=== PATIENT | male | born 1980 | race Caucasian/White ===

== ENCOUNTER 2017-05-22 08:19 | Emergency (ER) | payer OTHER ==
[2017-05-22 08:28] VITALS: BP 150/85; PULSE 72; RESP 18; TEMP 97.5
[2017-05-22] MEDS ORDERED: PROPARACAINE 0.5% OPHTH DROPS 15 ML BTL BOTH EYES STA (08:29)
[2017-05-22] MEDS ORDERED: ERYTHROMYCIN 5 MG/GM OPHTH OINT 3.5 GM TUBE BOTH EYES STA (08:29)
[2017-05-22] MEDS ORDERED: PROPARACAINE 0.5% OPHTH DROPS 15 ML BTL ONE (08:31)
--- NOTE | 2017-05-22 08:47 | ED ---
Eye Problem HPI - General Chief complaint: Eye Problems Stated complaint: FB IN LEFT EYE Time Seen by Provider: 05/22/17 08:29 Source: patient Mode of arrival: ambulatory Limitations: no limitations - History of Present Illness Initial comments: This is a 36-year-old male presents emergency Department chief complaint of pain and irritation over his left eye. Patient reports that yesterday he was working with insulation, and a piece came down and gravel also scratched his eye. Patient reports this happened last night. He states that throughout the day it became increasingly uncomfortable. He reports that he had a hard time sleeping due to pain. Patient denies any major change in vision however his eye seems to be sensitive to bright light. Patient states that he does not wear contacts. He usually does wear safety glasses. Patient states that he has noticed increased purulent drainage from the eyes well. Patient denies any fever or chills, pain with extra ocular eye movements or any other symptoms. Patient denies any recent fever, chills, shortness of breath, chest pain, back pain, abdominal pain, nausea vomiting, numbness or tingling, dysuria or hematuria, constipation or diarrhea, headaches or visual changes, or any other current symptoms - Related Data Previous Rx's Medication Instructions Recorded Albuterol Inhaler [Ventolin Hfa 1 puff INHALATION RT-QID PRN #1 04/01/15 Inhaler] inhaler Cyclobenzaprine [Flexeril] 10 mg PO TID #20 tablet 03/15/16 HYDROcodone/APAP 5-325MG [Mcgregor 5] 1 each PO Q4HR PRN #20 tab 03/15/16 Naproxen [Naprosyn] 500 mg PO Q12HR #24 tab 03/15/16 Allergies Allergy/AdvReac Type Severity Reaction Status Date / Time No Known Allergies Allergy Verified 05/22/17 08:28 Review of Systems ROS Statement: Those systems with pertinent positive or pertinent negative responses have been documented in the HPI. ROS Other: All systems not noted in ROS Statement are negative. Past Medical History Past Medical History: No Reported History History of Any Multi-Drug Resistant Organisms: None Reported Past Surgical History: Orthopedic Surgery Additional Past Surgical History / Comment(s): titanium plate in neck fusion between c4-c5 Past Anesthesia/Blood Transfusion Reactions: No Reported Reaction Past Psychological History: ADD/ADHD, Anxiety, Bipolar, Depression Smoking Status: Current every day smoker Past Alcohol Use History: None Reported Past Drug Use History: None Reported General Exam - General Exam Comments Initial Comments: 36-year-old male. No acute distress. Limitations: no limitations General appearance: alert, in no apparent distress Head exam: Present: atraumatic, normocephalic, normal inspection Eye exam: Present: normal appearance, PERRL, EOMI, conjunctival injection (Left eye conjunctival injection. Evidence of a corneal abrasion at the 12 o'clock position. Eyelid was lifted and there appeared to be a small piece of insulation seem to be left within the eye. This was removed.), other (Saez has left eye conjunctival injection.). Absent: scleral icterus, periorbital swelling ENT exam: Present: normal exam, mucous membranes moist Neck exam: Present: normal inspection. Absent: tenderness, meningismus, lymphadenopathy Respiratory exam: Present: normal lung sounds bilaterally. Absent: respiratory distress, wheezes, rales, rhonchi, stridor Cardiovascular Exam: Present: regular rate, normal rhythm, normal heart sounds. Absent: systolic murmur, diastolic murmur, rubs, gallop, clicks GI/Abdominal exam: Present: soft, normal bowel sounds. Absent: distended, tenderness, guarding, rebound, rigid Extremities exam: Present: normal inspection, full ROM, normal capillary refill. Absent: tenderness, pedal edema, joint swelling, calf tenderness Back exam: Present: normal inspection Neurological exam: Present: alert, oriented X3, CN II-XII intact Psychiatric exam: Present: normal affect, normal mood Course Vital Signs 05/22/17 08:26 Temperature 97.5 F L Pulse Rate 72 Respiratory 18 Rate Blood Pressure 150/85 O2 Sat by Pulse 100 Oximetry Medical Decision Making - Medical Decision Making 36-year-old male with left eye irritation after where he has house. Patient reports a gradual and insulation got in his eye. Patient has evidence of corneal abrasion at the 12 o'clock position. There is also piece of what appeared to be some insulation still left in it. This was removed. Patient was started on erythromycin ointment. Discussed close follow-up with tool shaper set up operator if symptoms continue to persist or worsen within the next 4 hours. Patient agrees to treatment plan will comply. Return parameters were discussed. Disposition Clinical Impression: Corneal abrasion, left, Foreign body in eyeball, left Disposition: HOME SELF-CARE Condition: Good Instructions: Corneal Abrasion (ED) Additional Instructions: Patient advised to follow-up with tool shaper set up operator if symptoms continue to persist. Return to the emergency department if any alarming signs or symptoms occur. Patient is apply the eye ointment every 4 hours. Referrals: Chad Rider MD [Primary Care Provider] - 1-2 days Twyla Yang MD [STAFF PHYSICIAN] - 1-2 days Time of Disposition: 08:46
== END 2017-05-22 08:55 | disposition home or self-care (01) ==
LOC: EC 08:19
DX: T15.82XA Foreign body in other and multiple parts of external eye, left eye, initial encounter (principal); S05.02XA Injury of conjunctiva and corneal abrasion without foreign body, left eye, initial encounter; F17.200 Nicotine dependence, unspecified, uncomplicated; X58.XXXA Exposure to other specified factors, initial encounter
CPT/HCPCS: 99283

== ENCOUNTER 2018-01-22 22:16 | Emergency (ER) | payer BC ==
[2018-01-22 22:25] VITALS: BP 147/93; PULSE 86; RESP 16; TEMP 98.6
[2018-01-23] MEDS ORDERED: ORPHENADRINE 30 MG/ML 2 ML VIAL IM STA (00:25)
[2018-01-23] MEDS ORDERED: KETOROLAC 30 MG/ML 1 ML VIAL IM STA (00:25)
[2018-01-23] MEDS ORDERED: methylPREDNISolone SOD SUCCI 125 MG/2 ML VIAL IM ONE (00:25)
--- NOTE | 2018-01-23 00:28 | ED ---
Neck Injury/Pain HPI - General Chief Complaint: Neck Pain/Injury Stated Complaint: neck pain Time Seen by Provider: 01/23/18 00:10 Mode of arrival: ambulatory Limitations: no limitations - History of Present Illness Initial Comments: 37-year-old male patient presents the emergency department today for complaints of neck pain with radiation down the right arm. Patient states that this started getting worse time approximately a week ago. Patient states that he does have a history of chronic neck pain and issues. States he has had surgery with a titanium plate placement in the past. Patient states that the pain has been worsening recently and he is unable to perform his job duties as usual. Patient states that the pain starts in the right shoulder and radiates down the right arm. Patient denies any numbness or tingling to the arm. States that the pain is similar to when he had neck problems in the past. Patient states he has been taking Tylenol and Motrin for pain relief which is not helping. He denies any fever, chills, or arm swelling. He denies any recent trauma to the neck or arm. Patient denies any recent rash, shortness breath, chest pain, abdominal pain, nausea, vomiting, diarrhea, constipation, back pain, dizziness, weakness, hematuria, dysuria, urinary urgency, urinary frequency, headache, visual changes, or any other complaints. - Related Data Previous Rx's Medication Instructions Recorded Cyclobenzaprine [Flexeril] 10 mg PO TID #15 tab 01/23/18 Ibuprofen 800 mg PO TID PRN #30 tablet 01/23/18 predniSONE 50 mg PO DAILY #5 tablet 01/23/18 Allergies Allergy/AdvReac Type Severity Reaction Status Date / Time No Known Allergies Allergy Verified 01/22/18 22:25 Review of Systems ROS Statement: Those systems with pertinent positive or pertinent negative responses have been documented in the HPI. ROS Other: All systems not noted in ROS Statement are negative. Past Medical History Past Medical History: No Reported History History of Any Multi-Drug Resistant Organisms: None Reported Past Surgical History: Orthopedic Surgery Additional Past Surgical History / Comment(s): titanium plate in neck fusion between c4-c5 Past Anesthesia/Blood Transfusion Reactions: No Reported Reaction Past Psychological History: ADD/ADHD, Anxiety, Bipolar, Depression Smoking Status: Current every day smoker Past Alcohol Use History: None Reported Past Drug Use History: None Reported General Exam Limitations: no limitations General appearance: alert, in no apparent distress, other (This is a well- developed, well-nourished adult male patient in no acute distress. Vital signs upon presentation are temperature 98.6F, pulse 86, respirations 16, blood pressure 147/93, pulse ox 98% on room air.) Eye exam: Present: normal appearance, PERRL, EOMI. Absent: scleral icterus, conjunctival injection, periorbital swelling ENT exam: Present: normal exam, normal oropharynx, mucous membranes moist Neck exam: Present: normal inspection. Absent: tenderness, meningismus, full ROM (Limited range of motion due to increased pain with movement), lymphadenopathy Respiratory exam: Present: normal lung sounds bilaterally. Absent: respiratory distress, wheezes, rales, rhonchi, stridor Cardiovascular Exam: Present: regular rate, normal rhythm, normal heart sounds. Absent: systolic murmur, diastolic murmur, rubs, gallop, clicks GI/Abdominal exam: Present: soft, normal bowel sounds. Absent: distended, tenderness, guarding, rebound, rigid Extremities exam: Present: normal inspection, full ROM, normal capillary refill , other (Right arm skin is pink, warm, and dry. Cap refills less than 3 seconds. Radial pulses 2+ and equal bilaterally. There is some crepitus with range of motion of the right shoulder.). Absent: tenderness, pedal edema, joint swelling, calf tenderness Neurological exam: Present: alert, oriented X3, CN II-XII intact Psychiatric exam: Present: normal affect, normal mood Skin exam: Present: warm, dry, intact, normal color. Absent: rash Course Vital Signs 01/22/18 22:23 Temperature 98.6 F Pulse Rate 86 Respiratory 16 Rate Blood Pressure 147/93 O2 Sat by Pulse 98 Oximetry Medical Decision Making - Medical Decision Making 37-year-old male patient presented to the emergency department today for evaluation of neck and right arm pain. Physical examination did reveal good neurovascular status. Patient did have crepitus with movement of the right shoulder. Distal pulses are intact. With patient's history of chronic neck pain and issues and his description of the symptoms I do believe his symptoms are related to cervical radiculopathy. We will give anti-inflammatory pain medication, muscle relaxer, and steroid. He is instructed to follow-up with Dr. Swenson for further evaluation. He is instructed to return here immediately for any new, worsening, or concerning symptoms. He verbalizes understanding and agrees with this plan. Disposition Clinical Impression: Cervical radiculopathy Disposition: HOME SELF-CARE Condition: Good Instructions: Cervical Radiculopathy (ED) Additional Instructions: Apply warm moist heat to the neck and shoulder. Take medications as directed. Follow-up with marketing analytics specialist as soon as possible. Return here immediately for any new, worsening, or concerning symptoms. Prescriptions: Cyclobenzaprine [Flexeril] 10 mg PO TID #15 tab Ibuprofen 800 mg PO TID PRN #30 tablet PRN Reason: Pain predniSONE 50 mg PO DAILY #5 tablet Is patient prescribed a controlled substance at d/c from ED?: No Referrals: James Chavez MD [Primary Care Provider] - 1-2 days Rosa Swenson DO [Doctor of Osteopathic Medicine] - 1-2 days Time of Disposition: 00:27
== END 2018-01-23 00:36 | disposition home or self-care (01) ==
LOC: EC 22:16
DX: M54.12 Radiculopathy, cervical region (principal); F17.200 Nicotine dependence, unspecified, uncomplicated
CPT/HCPCS: 99283; 96372 ×3; J2360; J2930; J1885

== ENCOUNTER 2018-01-29 21:53 | Emergency (ER) | payer BC ==
[2018-01-29 22:31] VITALS: BP 141/90; PULSE 106; RESP 18; TEMP 97
--- NOTE | 2018-01-29 23:19 | ED ---
General Adult HPI - General Chief complaint: Neck Pain/Injury Stated complaint: Neck/shoulder pain Time Seen by Provider: 01/29/18 22:25 Source: patient, RN notes reviewed Mode of arrival: ambulatory Limitations: no limitations - History of Present Illness Initial comments: 37-year-old male presents to the emergency department for a chief complaint of chronic neck pain. Pain has been worse for the past 2 weeks. Patient denies any injuries. Patient had neck surgery about 8 years ago and was told he would need another surgery. Patient was seen here one week ago and was given steroids , Flexeril, and Motrin. The Flexeril helped but the Motrin is not. Patient has an appointment with his surgeon in 2 weeks. He has an appointment with his primary care provider in 4 weeks. Patient states he contacted the surgeon because he was having pain and was told to go to the emergency department for pain management. 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 Patient states the pain is on the bilateral sides of his neck and is causing some pain in his right arm. Patient has no other complaints at this time including visual changes, headache, shortness of breath, chest pain , abdominal pain, nausea or vomiting, headache, or visual changes. - Related Data Previous Rx's Medication Instructions Recorded Cyclobenzaprine [Flexeril] 10 mg PO TID #15 tab 01/23/18 Ibuprofen 800 mg PO TID PRN #30 tablet 01/23/18 predniSONE 50 mg PO DAILY #5 tablet 01/23/18 Acetaminophen-Codeine 300-30mg 1 tab PO Q6HR PRN #10 tablet 01/29/18 [Tylenol #3] Cyclobenzaprine [Flexeril] 5 mg PO TID #9 tablet 01/29/18 Allergies Allergy/AdvReac Type Severity Reaction Status Date / Time No Known Allergies Allergy Verified 01/29/18 22:28 Review of Systems ROS Statement: Those systems with pertinent positive or pertinent negative responses have been documented in the HPI. ROS Other: All systems not noted in ROS Statement are negative. Past Medical History Past Medical History: No Reported History History of Any Multi-Drug Resistant Organisms: None Reported Past Surgical History: Orthopedic Surgery Additional Past Surgical History / Comment(s): titanium plate in neck fusion between c4-c5 Past Anesthesia/Blood Transfusion Reactions: No Reported Reaction Past Psychological History: ADD/ADHD, Anxiety, Bipolar, Depression Smoking Status: Current every day smoker Past Alcohol Use History: None Reported Past Drug Use History: None Reported General Exam Limitations: no limitations General appearance: alert, in no apparent distress Head exam: Present: atraumatic, normocephalic, normal inspection Eye exam: Present: normal appearance, PERRL, EOMI. Absent: scleral icterus, conjunctival injection, nystagmus, periorbital swelling ENT exam: Present: normal exam, mucous membranes moist, TM's normal bilaterally Neck exam: Present: tenderness (bilateral neck tenderness. No tenderness of the cervical spine.). Absent: meningismus, full ROM (patient has decreased rotation to the right. Full rotation to the left. Limited flexion and extension. ), lymphadenopathy, thyromegaly Respiratory exam: Present: normal lung sounds bilaterally. Absent: respiratory distress, wheezes, rales, rhonchi, stridor Cardiovascular Exam: Present: regular rate, normal rhythm, normal heart sounds. Absent: systolic murmur, diastolic murmur, rubs, gallop, clicks Extremities exam: Present: full ROM (Full range of motion of upper extremities bilaterally.), other (radial pulse 2+ in upper extremities bilaterally. Capillary refill less than 2 seconds. Sensation intact in upper extremities bilaterally.). Absent: tenderness Back exam: Present: normal inspection, full ROM. Absent: tenderness Course Vital Signs 01/29/18 22:28 Temperature 97 F L Pulse Rate 106 H Respiratory 18 Rate Blood Pressure 141/90 O2 Sat by Pulse 97 Oximetry Medical Decision Making - Medical Decision Making 37-year-old male presents to the emergency department for a chief complaint of chronic neck pain. Pain has worsened in the past 2 weeks. Patient has a history of neck surgery. No acute injuries. Patient denies IV drug use. Patient has tried Motrin steroids and Flexeril and the pain is still severe. Patient is having difficulty working due to the pain. On exam patient has limited range of motion of the neck. Upper extremities neurovascularly intact. No focal neuro deficits. X-ray of the C-spine was not done as this is a chronic complaint with no history of injury. Patient was given Tylenol 3 for 3 days. His maps score only showed 1 other narcotic prescription in 2016. He was also given Flexeril. He will attend his appointment with the surgeon as scheduled. He will return to the emergency department if he has any worsening symptoms. Disposition Clinical Impression: Chronic neck pain Disposition: HOME SELF-CARE Condition: Good Instructions: Neck Pain (ED) Additional Instructions: Please take Motrin for pain relief. If pain is severe take Tylenol 3. He may also take Flexeril. Please do not take Tylenol 3 or Flexeril when driving or operating machinery. Please follow-up with surgeon at your scheduled appointment. Return to the emergency department if symptoms worsen. Prescriptions: Acetaminophen-Codeine 300-30mg [Tylenol #3] 1 tab PO Q6HR PRN #10 tablet PRN Reason: Pain Cyclobenzaprine [Flexeril] 5 mg PO TID #9 tablet Is patient prescribed a controlled substance at d/c from ED?: No Referrals: James Chavez MD [Primary Care Provider] - 1-2 days Time of Disposition: 23:17
== END 2018-01-29 23:23 | disposition home or self-care (01) ==
LOC: EC 21:53
DX: G89.29 Other chronic pain (principal); M54.2 Cervicalgia; F17.200 Nicotine dependence, unspecified, uncomplicated; Z98.1 Arthrodesis status
CPT/HCPCS: 99283

== ENCOUNTER 2020-02-10 02:01 | Emergency (ER) | payer BC, OTHER ==
[2020-02-10 02:10] VITALS: BP 137/86; PULSE 100; RESP 18; TEMP 98.1
[2020-02-10] MEDS ORDERED: IBUPROFEN 400 MG TAB PO STA (02:43)
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
--- NOTE | 2020-02-10 03:25 | XR ---
EXAMINATION TYPE: XR hand complete RT DATE OF EXAM: 02/10/2020 COMPARISON: NONE HISTORY: Pain TECHNIQUE: 3 views FINDINGS: The metacarpals appear intact. There is a triangular-shaped 4 mm bony density at the anteri or aspect of the base of the third proximal phalanx. This could be at chip fracture.. Joint spaces ar e normal. IMPRESSION: Possible chip fracture of the base of the proximal phalanx of the middle finger.
== END 2020-02-10 04:23 | disposition home or self-care (01) ==
LOC: EC 02:01
DX: S62.612A Displaced fracture of proximal phalanx of right middle finger, initial encounter for closed fracture (principal); F17.200 Nicotine dependence, unspecified, uncomplicated; Z98.1 Arthrodesis status; X58.XXXA Exposure to other specified factors, initial encounter
CPT/HCPCS: 99283

== ENCOUNTER 2021-12-19 11:27 | Day surgery (SDC) | payer OTHER ==
[2021-12-18 10:58] VITALS: BMI 21.4
[2021-12-19] MEDS ORDERED: LACTATED RINGERS 1,000 ML IV ONE (11:50)
[2021-12-19 12:04] VITALS: TEMP 97
[2021-12-19] MEDS ORDERED: MIDAZOLAM 2 MG/2 ML VIAL ONE (12:10)
[2021-12-19] MEDS ORDERED: IOPAMIDOL M200 10 ML VIAL ONE (12:10)
[2021-12-19] MEDS ORDERED: fentaNYL (PF) 50 MCG/ML 2 ML AMP ONE (12:10)
[2021-12-19] MEDS ORDERED: methylPREDNISolone ACETATE 40 MG/ML 1 ML VIAL ONE (12:10)
--- NOTE | 2021-12-19 12:23 | P.PCN ---
Date of Procedure: 12/19/21 Procedure(s) Performed: PREOPERATIVE DIAGNOSIS: 1- Lumbar Degenerative Disc Diseases 2-Lumbar spondylosis with Facet arthropathy without myelopathy. 3-lumbar foraminal stenosis. POSTOPERATIVE DIAGNOSIS: Same as preop diagnosis. PROCEDURE 1. Lumbar epidural steroid injection under fluoroscopic guidance at the L5-S1 level. (Fluoroscopy imaging was available in radiology department) 2. Lumbar epidurogram. ANESTHESIA: Local with 1% lidocaine 3 ml and , moderate sedation with intravenous Versed 2 mg ,and fentanyle 100 Mcg EBL: Minimal PROCEDURE INDICATION: The patient with low back pain and radiculitis symptoms unresponsive to conservative treatment. Fluoroscopy was used to optimize visualization of the needle placement and to maximize safety. PROCEDURE DESCRIPTION / TECHNIQUE: The patient was seen and identified in the preoperative area. Risks, benefits, complications including but not limited to infections ,bleeding ,allergic reaction to the medications ,nerve damage and not complete pain releife , and alternatives were discussed with the patient. The patient agreed to proceed with the procedure and signed the consent. IV was started, and vital signs were stable. Patient was taken to the OR and time out was completed. The patient was placed in the prone position on procedure table and a pillow was placed under the abdomen to reduce lumbar lordosis. The lumbosacral area was prepped and draped in the usual sterile fashion.ere closely monitored during the procedure. Conscious sedation was used during the procedure to decrease patients anxiety. Vital signs was monitered during the entire procedure. Using anterior-posterior fluoroscopy, the L5-S1 interlaminar space was identified and the skin over this site was marked and then infiltrated with 1% lidocaine subcutaneously. Subsequently, a 20-gauge Tuohy epidural needle was inserted and advanced toward the epidural space using the ``Loss of resistance technique and guided by AP and lateral fluoroscopy. The correct needle position in the epidural space was verified with the injection of 2 mL of the water soluble contrast dye Isovue 200 contrast and observing an excellent epidurogram with the epidural spread of the dye, after negative aspiration for blood and CSF and in the absence of paresthesias. Again after negative aspiration, a 6 ml mixture containing 80 mg of Depo-medrol , and 2 ml of preservative free Normal Saline, and 2 ml of preservative free lidocaine 1% solution was injected and a washout of epidurogram was seen. Needle was withdrawn intact, skin was cleansed, and bandages were applied. COMPLICATIONS: None DISPOSITION / PLANS: The patient was placed in a supine position and transferred to the recovery area in a stable condition for observation. There was no evidence of lower extremity motor or sensory deficit after the procedure. Patient was discharged from the recovery room after meeting discharge criteria. Home discharge instructions were given to the patient by the staff. The patient was reexamined prior to discharge. The patient will schedule a follow up in the clinic in 2-4 weeks.
[2021-12-19] MEDS ORDERED: IV FLUID CONTINUATION 700 ML IV ONE ×2 (12:25)
--- NOTE | 2021-12-19 12:29 | FL ---
Fluoroscopy INDICATION: Pain FINDINGS: Fluoroscopy time: 2 seconds. Images obtained: 1. IMPRESSIONS: 1. Documentation of fluoroscopy.
[2021-12-19 13:00] VITALS: BP 120/77; PULSE 92; RESP 18
== END 2021-12-19 13:00 | disposition home or self-care (01) ==
LOC: ORPAIN 11:27
PROVIDERS: ATTEND Specialist
DX: M51.36 Other intervertebral disc degeneration, lumbar region (principal); M48.061 Spinal stenosis, lumbar region without neurogenic claudication; M47.816 Spondylosis without myelopathy or radiculopathy, lumbar region
CPT/HCPCS: 62323; J2250; J1030; J3010; Q9966

== ENCOUNTER 2022-01-25 10:06 | Day surgery (SDC) | payer OTHER ==
[2022-01-24 10:56] VITALS: BMI 20.7
[~2022-01-25 10:06] MED LIST: LACTATED RINGERS 1,000 ML IV SCH; LIDOCAINE 1% (10MG/ML) FOR IV START INTRADERMA PRN
[2022-01-25 10:34] VITALS: TEMP 97.7
[2022-01-25] MEDS ORDERED: fentaNYL (PF) 50 MCG/ML 2 ML AMP ONE (10:59)
[2022-01-25] MEDS ORDERED: methylPREDNISolone ACETATE 40 MG/ML 1 ML VIAL ONE (10:59)
[2022-01-25] MEDS ORDERED: IOPAMIDOL M200 10 ML VIAL ONE (10:59)
[2022-01-25] MEDS ORDERED: MIDAZOLAM 2 MG/2 ML VIAL ONE (10:59)
--- NOTE | 2022-01-25 11:11 | P.PCN ---
Date of Procedure: 01/25/22 Procedure(s) Performed: PREOPERATIVE DIAGNOSIS: 1- Lumbar Degenerative Disc Diseases 2-Lumbar spondylosis with Facet arthropathy without myelopathy. 3-lumbar foraminal stenosis. POSTOPERATIVE DIAGNOSIS: Same as preop diagnosis. PROCEDURE 1. Lumbar epidural steroid injection under fluoroscopic guidance at the L5-S1 level. (Fluoroscopy imaging was available in radiology department) 2. Lumbar epidurogram. ANESTHESIA: Local with 1% lidocaine 3 ml and , moderate sedation with in travenous Versed 2 mg ,and fentanyle 100 Mcg EBL: Minimal PROCEDURE INDICATION: The patient with low back pain and radiculitis symptoms unresponsive to conservative treatment. Fluoroscopy was used to optimize visualization of the needle placement and to maximize safety. PROCEDURE DESCRIPTION / TECHNIQUE: The patient was seen and identified in the preoperative area. Risks, benefits, complications including but not limited to infections ,bleeding ,allergic reaction to the medications ,nerve damage and not complete pain releife , and alternatives were discussed with the patient. The patient agreed to proceed with the procedure and signed the consent. IV was started, and vital signs were stable. Patient was taken to the OR and time out was completed. The patient was placed in the prone position on procedure table and a pillow was placed under the abdomen to reduce lumbar lordosis. The lumbosacral area was prepped and draped in the usual sterile fashion.ere closely monitored during the procedure. Conscious sedation was used during the procedure to decrease patients anxiety. Vital signs was monitered during the entire procedure. Using anterior-posterior fluoroscopy, the L5-S1 interlaminar space was identified and the skin over this site was marked and then infiltrated with 1% lidocaine subcutaneously. Subsequently, a 20-gauge Tuohy epidural needle was inserted and advanced toward the epidural space using the ``Loss of resistance technique and guided by AP and lateral fluoroscopy. The correct needle position in the epidural space was verified with the injection of 2 mL of the water soluble contrast dye Isovue 200 contrast and observing an excellent epidurogram with the epidural spread of the dye, after negative aspiration for blood and CSF and in the absence of paresthesias. Again after negative aspiration, a 6 ml mixture containing 80 mg of Depo-medrol , and 2 ml of preservative free Normal Saline, and 2 ml of preservative free lidocaine 1% solution was injected and a washout of epidurogram was seen. Needle was withdrawn intact, skin was cleansed, and bandages were applied. COMPLICATIONS: None DISPOSITION / PLANS: The patient was placed in a supine position and transferred to the recovery area in a stable condition for observation. There was no evidence of lower extremity motor or sensory deficit after the procedure. Patient was discharged from the recovery room after meeting discharge criteria. Home discharge instructions were given to the patient by the staff. The patient was reexamined prior to discharge. The patient will schedule a follow up with Dr Swenson..
[2022-01-25] MEDS ORDERED: IV FLUID CONTINUATION 1,000 ML IV ONE (11:15)
[2022-01-25 11:39] VITALS: BP 134/79; PULSE 74; RESP 16
--- NOTE | 2022-01-25 15:15 | FL ---
EXAMINATION TYPE: FL guided pain mgmt statistic DATE OF EXAM: 01/25/2022 CLINICAL HISTORY: Low back pain. TECHNIQUE: Fluoroscopy. COMPARISON: None. FINDINGS: Fluoroscopic guidance was provided during pain relief procedure performed by Dr. Scott . A total of 2 seconds of fluoroscopic time was utilized during the procedure and 1 spot images are acquired. Single image acquired shows needle localization at L5 level with contrast injection. IMPRESSION: As Above.
== END 2022-01-25 11:42 | disposition home or self-care (01) ==
LOC: ORPAIN 10:06
PROVIDERS: ATTEND Specialist
DX: M47.816 Spondylosis without myelopathy or radiculopathy, lumbar region (principal); M48.061 Spinal stenosis, lumbar region without neurogenic claudication; M51.36 Other intervertebral disc degeneration, lumbar region
CPT/HCPCS: 62323; J2250; J1030; J3010; Q9966

== ENCOUNTER → 2022-01-31 | Outpatient (CLI) | payer OTHER ==
--- NOTE | 2022-01-31 10:54 | XR ---
EXAMINATION TYPE: XR chest 2V DATE OF EXAM: 01/31/2022 COMPARISON: Prior chest x-ray January 15, 2015 HISTORY: Presurgical study. TECHNIQUE: Frontal and lateral views of the chest are obtained. FINDINGS: There is no suspicious focal air space opacity, pleural effusion, or pneumothorax seen. T he cardiac silhouette size remains within normal limits. Surgical change to the lower cervical spine is redemonstrated only partially imaged on this study. IMPRESSION: No acute cardiopulmonary process. No significant change from prior.
[2022-01-31 11:23] LABS: Partial Thromboplastin Time 23.3 sec (22.0-30.0); Prothrombin Time 10.5 sec (9.0-12.0)
[2022-01-31 14:48] LABS: Basophils # (A) 0.03 X 10*3/uL (0.00-0.10); Basophils % (A) 0.3 %; Eosinophils # (A) 0.13 X 10*3/uL (0.04-0.35); Eosinophils % (A) 1.4 %; HCT 47.2 % (39.6-50.0); HGB 15.6 g/dL (13.0-17.0); Immature Grans, Automated 0.5 %; MCHC 33.1 g/dL (32.0-37.0); MCV 93.8 fL (80.0-97.0); Mean Platelet Volume 10.2 fL (9.5-12.2); Monocytes # (A) 0.68 X 10*3/uL (0.20-1.00); Monocytes % (A) 7.2 %; NRBC Per 100 WBC 0 /100 WBCS (0.0-0.0); Neutrophils # (A) 5.41 X 10*3/uL (1.80-7.70); Neutrophils % (A) 57.6 %; Platelet Count 351 X 10*3/uL (140-440); RBC 5.03 X 10*6/uL (4.40-5.60); RDW 12.6 % (11.5-14.5)
[2022-01-31 15:27] LABS: BUN/Creat Ratio 17.12 Ratio (12.00-20.00); Blood Urea Nitrogen 13.3 mg/dL (9.0-27.0); Calcium 9.5 mg/dL (8.7-10.3); Carbon Dioxide 26.8 mmol/L (20.0-27.5); Non-African American GFR(CKD) 113.9 (60.0-200.0); Potassium 4.4 mmol/L (3.5-5.5)
[2022-01-31 19:30] LABS: Appearance,Urine Turbid (Clear); Bacteria,Urine None Seen /HPF (None Seen); Bilirubin,Urine Negative (Negative); Blood,Urine Negative (Negative); Calcium Oxalate Crystals,Urine Present /LPF (None Seen); Color,Urine Orange (Yellow); Ketones,Urine Trace mg/dL (Negative); Nitrite,Urine Negative (Negative); PH, Urine 5.5 (5.0-8.0); Specific Gravity,Urine 1.025 (1.001-1.030); Urobilinogen,Urine 0.2 (0.2,1.0)
== END | disposition home or self-care (01) ==
LOC: LABPAT 09:48
PROVIDERS: ATTEND Orthopaedic Surgery Orthopaedic Surgery of the Spine
DX: Z01.812 Encounter for preprocedural laboratory examination (principal); K42.9 Umbilical hernia without obstruction or gangrene
CPT/HCPCS: 71046; 80048; 81001; 85025; 85610; 85730; 93005

== ENCOUNTER 2022-02-07 12:39 | Day surgery (SDC) | payer OTHER ==
[2022-02-05 10:50] VITALS: BMI 21.1
[~2022-02-07 12:39] MED LIST changes: +ONDANSETRON 4 MG/2 ML VIAL IVP ONE; +ceFAZolin 1,000 MG in SODIUM CHLORIDE 0.9% IRRIGATIO 1,000 ML IRRIGATION PRN
[2022-02-07] MEDS ORDERED: HYDROmorphone (PF) 1 MG/ML ONE (14:28)
[2022-02-07] MEDS ORDERED: KETAMINE 10 MG/ML 20 ML VIAL ONE (14:28)
[2022-02-07] MEDS ORDERED: NEOSTIGMINE 1 MG/ML 10 ML VIAL ONE (14:28)
[2022-02-07] MEDS ORDERED: PROPOFOL 10 MG/ML 20 ML VIAL IV ONE (14:28)
[2022-02-07] MEDS ORDERED: ROCURONIUM 10 MG/ML (5 ML VIAL) IV ONE (14:28)
[2022-02-07] MEDS ORDERED: fentaNYL (PF) 50 MCG/ML 2 ML AMP ONE (14:28)
[2022-02-07] MEDS ORDERED: MIDAZOLAM 2 MG/2 ML VIAL ONE (14:28)
[2022-02-07] MEDS ORDERED: LIDOCAINE 2% INJ 20 MG/ML (2 ML VIAL) ONE (14:28)
[2022-02-07] MEDS ORDERED: GLYCOPYRROLATE 0.2 MG/ML 2 ML VIAL ONE (14:28)
[2022-02-07] MEDS ORDERED: SUCCINYLCHOLINE CHLORIDE 100 MG/5 ML SYR IV ONE (14:28)
[2022-02-07] MEDS ORDERED: GELATIN SPONGE,ABSORB (LARGE) 1 EACH SPONGE TOPICAL ONE (14:32)
[2022-02-07] MEDS ORDERED: THROMBIN (BOVINE) 5,000 UNIT VIAL TOPICAL ONE (14:32)
[2022-02-07] MEDS ORDERED: LIDOCAINE 0.5%-EPI 1:200,000 50 ML VIAL SQ ONE (14:32)
[2022-02-07] MEDS ORDERED: methylPREDNISolone ACETATE 40 MG/ML 1 ML VIAL MISCELLANE ONE (14:32)
--- NOTE | 2022-02-07 15:23 | FL ---
EXAMINATION TYPE: FL guidance operating room, XR lumbar spine 1V DATE OF EXAM: 02/07/2022 CLINICAL HISTORY: Low back pain. TECHNIQUE: Fluoroscopy. Intraoperative one view lumbar spine. COMPARISON: None. FINDINGS: Fluoroscopic guidance was provided during lumbar laminectomy and discectomy procedure perf ormed by Dr. Swenson. A total of 1 seconds of fluoroscopic time was utilized during the procedure and 1 spot images was acquired. Single intraoperative image obtained shows suboptimal penetration with metallic pointer at suspected L5 level for surgical planning. IMPRESSION: As Above.
[2022-02-07] MEDS ORDERED: HYDROmorphone 1 MG/ML 1 ML SYRINGE IVP PRN (15:58)
[2022-02-07] MEDS ORDERED: HYDROcodone/APAP 10-325MG 1 EACH TAB PO PRN (15:58)
[2022-02-07] MEDS ORDERED: BENZOCAINE/MENTHOL LOZENG 1 EACH LOZENGE MUCOUS MEM PRN (15:58)
[2022-02-07] MEDS ORDERED: KETOROLAC 15 MG/ML 1 ML VIAL IVP PRN (15:59)
[2022-02-07] MEDS ORDERED: ONDANSETRON 4 MG/2 ML VIAL IVP PRN (15:59)
[2022-02-07] MEDS ORDERED: CYCLOBENZAPRINE 10 MG TAB PO PRN (15:59)
[2022-02-07] MEDS ORDERED: HYDROcodone/APAP 7.5-325MG 1 EACH TAB PO PRN (16:00)
[2022-02-07] MEDS ORDERED: GABAPENTIN 300 MG CAP PO SCH (16:00)
[2022-02-07] MEDS ORDERED: SODIUM CHLORIDE 0.9% 1,000 ML IV SCH (16:00)
[2022-02-07] MEDS ORDERED: LACTATED RINGERS 1,000 ML IV ONE (16:08)
--- NOTE | 2022-02-07 16:08 | P.OP ---
Date of Procedure: 02/07/22 Preoperative Diagnosis: Herniated nucleus pulposis L4 5 L5-S1, right lower extremity radiculopathy, right lower extremity weakness Postoperative Diagnosis: Same Anesthesia: GETA Pathology: none sent Condition: stable Disposition: PACU Description of Procedure: BRIEF OPERATIVE NOTE Preoperative Diagnosis:Herniated nucleus pulposis L4 5 L5-S1, right lower extremity radiculopathy, right lower extremity weakness Postoperative Diagnosis:Herniated nucleus pulposis L4 5 L5-S1, right lower extremity radiculopathy, right lower extremity weakness Procedure: Laminectomy and decompression L4 5 L5-S1 Discectomy for decompression L4 5 L5-S1 Use of fluoroscopic guidance Surgeon: Dr. Swenson Fish Hatchery Inspector: Parish Frank is present throughout the entire the case persistence during positioning, dissection, exposure, visualization, and all crucial elements of the case as well as closure. Anesthesia: General anesthesia per Dr. Mohan Estimated blood loss: Approximately 50 mL Complications: None apparent Components implanted: None Disposition: To recovery room in good stable condition. OPERATIVE INDICATIONS The patient has been having issues in their lower back and lower extremities. Patient's pain has been quite severe and debilitating for him. He has not been able to do activities has been unable to work with any regularity has been having severe pain on his right lower extremity over L5-S1 distribution. His found have disc protrusion with herniation and foraminal stenosis L4 5 and L5-S1 which correlated well with his low back and lower extremity symptoms. He had an annular fissure at L4 5 as well. The patient has been through conservative treatment. He is not having any significant or prolonged benefit despite ag gressive conservative treatment. We discussed various treatment options including surgery, and the patient wishes to proceed with surgery We discussed the risk, patient's alternatives and benefits of surgery including but not limited to, risk of bleeding risk of infection, risk of need for further surgery, risk of decreased, loss of motion, loss of function, nerve damage, paralysis, heart attack, blindness and . He also has understood the possibility that surgery may not alleviate his symptomatology. OPERATIVE SUMMARY After discussing all the risks, patient alternatives and benefits at length, the patient elected to proceed with surgical intervention, signed informed consent, and presented for their procedure. The patient was seen and examined in the preoperative holding area and the surgical site was marked. The patient was given antibiotics and brought to the operating room. The patient was sedated and intubated by anesthesia in standard fashion. The patient was positioned on to the operating room table in a prone position on the appropriate frame which was well-padded and well molded. We were careful to pad any bony prominences and pressure points. We were careful to maintain the patient's cervical spine and good neutral alignment and position throughout. The patient was prepped and draped in a normal standard fashion. An appropriate timeout and keystone protocol performed. We were able to proceed with the surgery. Fluoroscopy was utilized to establish the appropriate level. The local wound area was infiltrated with local anesthetic. An incision was made at the midline longitudinally over the appropriate levels at L4 5 and L5-S1. Dissection was taken down subcutaneously to the level of the fascia which was split midline. Dissection was taken over the lamina. Intraoperative fluoroscopy was taken which showed a marker at the appropriate level. With the appropriate level positively confirmed, we had a metallic marker L5-S1 interlaminar space and we were able to proceed with laminectomy. The wound was copiously irrigated and suctioned dry as had been done periodically throughout the case. I performed a similar procedure first at L5- S1 and then at L4 5. I performed a laminectomy with a combination of curettes and a high-speed bur and Kerrison rongeurs. A small medial facetectomy was performed again further access. A partial foraminotomy was also performed. Portions of the ligamentum flavum were taken down to expose the dura and traversing nerve root. I was able to mobilize the traversing nerve root and gain access to the disc space. Note was made of obvious compression from the disc at both L5-S1 and then at L4 5 Protecting the soft tissue structures, a small annulotomy was established. I was able to perform discectomy and remove any extruded disc fragments and any loose fragments from within the disc itself. There is some disc desiccation noted. I tried to preserve the disc annulus that appeared stable. There were no further extruded fragments noted. There is no evidence of dural tear or leak. Good hemostasis maintained. The wound was copiously irrigated and suctioned dry. Good decompression and discectomy was noted at both L4 5 and L5-S1. The peridural area was infiltrated with Depo-Medrol. We were able to proceed with closure. The fascia was closed for a watertight closure. The subcuticular tissue was closed with absorbable suture. The wound was cleaned and dried and dressed with the appropriate dressing. The drapes were broken down. The patient was gently rolled back onto their hospital bed being careful to maintain their cervical spine and good neutral alignment and position. They were woken up by anesthesia, extubated, and brought to the recovery room in good stable condition. The patient will be admitted to the hospital for observation and for appropriate postoperative care, medical management and monitoring. We will continue to follow them closely about the postoperative course.
[2022-02-07] MEDS ORDERED: hydrALAZINE HCL 20 MG/ML 1 ML VIAL IVP ONE (16:21)
[2022-02-07] MEDS: HYDROmorphone 0.5 MG/0.5 ML SYRINGE IVP PRN ×3 (16:23→16:44)
[2022-02-07 16:35] VITALS: TEMP 97
[2022-02-07] MEDS ORDERED: MORPHINE SULFATE 4 MG/ML SYRINGE IV ONE (16:49)
[2022-02-07 17:20] VITALS: RESP 18
[2022-02-07] MEDS ORDERED: HYDROcodone/APAP 10-325MG 1 EACH TAB PO ONE (17:35)
[2022-02-07 17:48] VITALS: BP 138/88; PULSE 87
== END 2022-02-07 18:13 | disposition home or self-care (01) ==
LOC: OR 12:39
PROVIDERS: ATTEND Orthopaedic Surgery Orthopaedic Surgery of the Spine
DX: M51.27 Other intervertebral disc displacement, lumbosacral region (principal)
CPT/HCPCS: 63047; 63048; 86900; 86901; 86850; 72020; J2250; J2270; J0360; J1030; J2710; J0690 ×2; J2405; J3010; J1170 ×2; J1885; J0330; J2704; J2001

== ENCOUNTER 2022-12-22 17:24 | Emergency (ER) | payer OTHER ==
[2022-12-22] MEDS ORDERED: KETOROLAC 15 MG/ML 1 ML VIAL IM STA (17:45)
--- NOTE | 2022-12-22 17:54 | ED ---
Lower Extremity Injury HPI - General Chief Complaint: Extremity Injury, Lower Stated Complaint: Rt ankle pain Time Seen by Provider: 12/22/22 17:42 Source: patient Mode of arrival: ambulatory Limitations: no limitations - History of Present Illness Initial Comments: Patient is a 42-year-old male presents to the emergency department for right ankle pain. Patient twisted his right ankle inward while walking down the stairs today. He did not fall or hit his head. Patient has pain in the inside of his ankle. Patient states he cannot walk due to pain. He denies any numbness and tingling. - Related Data Home Medications Medication Instructions Recorded Confirmed Gabapentin [Neurontin] 300 mg PO TID 10/30/21 02/07/22 HYDROcodone/APAP 7.5-325MG [Marshall 1 tab PO Q6HR PRN 01/24/22 02/07/22 7.5-325] Previous Rx's Medication Instructions Recorded HYDROcodone/APAP 10-325MG [Marshall 1 tab PO Q4HR PRN 3 Days #18 tab 02/07/22 10-325] Ibuprofen [Motrin] 600 mg PO Q8HR PRN #30 tab 12/22/22 Allergies Allergy/AdvReac Type Severity Reaction Status Date / Time No Known Allergies Allergy Verified 12/22/22 17:37 Review of Systems ROS Statement: Those systems with pertinent positive or pertinent negative responses have been documented in the HPI. ROS Other: All systems not noted in ROS Statement are negative. Past Medical History Past Medical History: GERD/Reflux Additional Past Medical History / Comment(s): "borderline BP"-no rx History of Any Multi-Drug Resistant Organisms: None Reported Past Surgical History: Orthopedic Surgery Additional Past Surgical History / Comment(s): titanium plate in neck fusion between c4-c5 Past Anesthesia/Blood Transfusion Reactions: No Reported Reaction Past Psychological History: ADD/ADHD, Anxiety, Bipolar, Depression Smoking Status: Current every day smoker Past Alcohol Use History: Occasional Past Drug Use History: None Reported - Past Family History Mother Family Medical History: No Reported History General Exam Limitations: no limitations General appearance: alert Head exam: Present: atraumatic, normocephalic, normal inspection Respiratory exam: Present: normal lung sounds bilaterally. Absent: respiratory distress, wheezes, rales, rhonchi, stridor Cardiovascular Exam: Present: regular rate, normal rhythm, normal heart sounds. Absent: systolic murmur, diastolic murmur, rubs, gallop, clicks Extremities exam: Present: other (Tenderness to right medial ankle without any surrounding erythema, swelling, ecchymosis. Full range of motion. Sensation intact. Cap refill < 2 seconds) Course Vital Signs 12/22/22 12/22/22 17:36 18:18 Temperature 98.4 F 98 F Pulse Rate 83 80 Respiratory 20 18 Rate Blood Pressure 136/99 129/79 O2 Sat by Pulse 99 98 Oximetry Medical Decision Making - Medical Decision Making Was pt. sent in by a medical professional or institution (, [facility], GEOPHYSICAL LABORATORY CHIEF, urgent care, hospital, or residential...) When possible be specific @ -No Did you speak to anyone other than the patient for history (EMS, parent, family, police, friend...)? What history was obtained from this source @ -No Did you review nursing and triage notes (agree or disagree)? Why? @ -I reviewed and agree with nursing and triage notes Were old charts reviewed (outside hosp., previous admission, EMS record, old EKG, old radiological studies, urgent care reports/EKG's, residential records)? Report findings @ -No old charts were reviewed Differential Diagnosis (chest pain, altered mental status, abdominal pain women, abdominal pain men, vaginal bleeding, weakness, fever, dyspnea, syncope, headache, dizziness, GI bleed, back pain, seizure, CVA, palpatations, mental health)? @ -Contusion, ankle sprain, ankle fracture EKG interpreted by me (3pts min.). @ -As above X-rays interpreted by me (1pt min.). @ --Yes, ankle x-ray negative for acute process. CT interpreted by me (1pt min.). @ -None done U/S interpreted by me (1pt. min.). @ -None done What testing was considered but not performed or refused? (CT, X-rays, U/S, labs)? Why? @ -None What meds were considered but not given or refused? Why? @ -None Did you discuss the management of the patient with other professionals (professionals i.e. JOSLYN Crwes, GEOPHYSICAL LABORATORY CHIEF, lab, RT, psych nurse, social sciences chair, water and gas helper, teacher, chief lending officer, case making machine operator)? Give summary @ -No Was smoking cessation discussed for >3mins.? @ -No Was critical care preformed (if so, how long)? @ -No Were there social determinants of health that impacted care today? How? (Homelessness, low income, unemployed, alcoholism, drug addiction, transportation, low edu. Level, literacy, decrease access to med. care, assisted, rehab)? @ -No Was there de-escalation of care discussed even if they declined (Discuss DNR or withdrawal of care, Hospice)? DNR status @ -No What co-morbidities impacted this encounter? (DM, HTN, Smoking, COPD, CAD, Cancer, CVA, ARF, Chemo, Hep., AIDS, mental health diagnosis, sleep apnea, morbid obesity)? @ -[None] Was patient admitted / discharged? Hospital course, mention meds given and route, prescriptions, significant lab abnormalities, going to OR and other pertinent info. @ -Patient presenting with right ankle pain after twisting injury. Patient has tenderness the medial ankle without any overlying erythema, swelling, ecchymosis. Neurovascularly intact. X-ray negative for acute process. Due to significant pain with ambulation patient given crutches. He was placed in right ankle splint for ankle sprain. He is to bear weight as tolerated. We discussed rest, ice, elevation in detail. Patient to follow-up with precision farming specialist who he is referred to today. Undiagnosed new problem with uncertain prognosis? @ -[No] Drug Therapy requiring intensive monitoring for toxicity (Heparin, Nitro, Insulin, Cardizem)? @ -[No] Were any procedures done? @ -Yes, splinting Diagnosis/symptom? @ -Right ankle sprain Acute, or Chronic, or Acute on Chronic? @ -Acute Uncomplicated (without systemic symptoms) or Complicated (systemic symptoms)? @ -Uncomplicated Side effects of treatment? @ -[No] Exacerbation, Progression, or Severe Exacerbation? @ -[No] Poses a threat to life or bodily function? How? (Chest pain, [place], [place], pneumonia, PE, COPD, DKA, ARF, appy, cholecystitis, CVA, Diverticulitis, Homicidal, Suicidal, threat to staff... and all critical care pts) @ -[No] Dr. Bryant is my attending Disposition Clinical Impression: Right ankle sprain Disposition: HOME SELF-CARE Condition: Good Instructions (If sedation given, give patient instructions): Ankle Sprain (ED) Additional Instructions: Rest and elevate the joint as much as possible. Ice the injury for the next 24- 48 hours. If symptoms continue after, apply warm compress. Take Tylenol or Motrin as needed for pain. Use crutches and bear weight as tolerated. Follow- up with precision farming specialist in 1-2 days.. Return to the emergency department if you experience new, concerning, or worsening symptoms. Prescriptions: Ibuprofen [Motrin] 600 mg PO Q8HR PRN #30 tab PRN Reason: Pain Is patient prescribed a controlled substance at d/c from ED?: No Referrals: None,Stated [Primary Care Provider] - 1-2 days Emanuel Garcia MD [STAFF PHYSICIAN] - 1-2 days
--- NOTE | 2022-12-22 17:58 | XR ---
EXAMINATION TYPE: XR ankle complete RT DATE OF EXAM: 12/22/2022 COMPARISON: NONE HISTORY: Pain TECHNIQUE: Frontal, lateral and oblique images of the right ankle are obtained. COMPARISON: None. FINDINGS: There is no acute fracture/dislocation evident. The joint spaces appear within normal lewis its. The overlying soft tissue appears unremarkable. IMPRESSION: There is no acute fracture or dislocation seen.
[2022-12-22] MEDS ORDERED: ACET/COD 300 MG/30 MG STARTER PACK 6 TAB BTL PO STA (18:12)
[2022-12-22 18:24] VITALS: BP 129/79; PULSE 80; RESP 18; TEMP 98
== END 2022-12-22 18:19 | disposition home or self-care (01) ==
LOC: EC 17:24
DX: S93.401A Sprain of unspecified ligament of right ankle, initial encounter (principal); F41.9 Anxiety disorder, unspecified; F31.9 Bipolar disorder, unspecified; F17.200 Nicotine dependence, unspecified, uncomplicated; X50.9XXA Other and unspecified overexertion or strenuous movements or postures, initial encounter; Y93.01 Activity, walking, marching and hiking
CPT/HCPCS: 73610; 99283; 96372; J1885

== ENCOUNTER → 2023-01-15 | Outpatient (CLI) | payer OTHER | END | disposition home or self-care (01) | LOC: LABWHC1 16:18 | PROVIDERS: ATTEND Orthopaedic Surgery | DX: Z53.9 Procedure and treatment not carried out, unspecified reason (principal) ==

== ENCOUNTER → 2023-01-31 | Outpatient (CLI) | payer OTHER ==
[2023-01-31 10:14] VITALS: BP 153/107; PULSE 66; RESP 18; TEMP 98
--- NOTE | 2023-01-31 12:39 | P.PAINPG ---
PQRS Measure Charge Sheet Comment: A 42 yr old male w female psych therapist at side with a history of severe and chronic R hip pain secondary to OA presents today for evaluation. Pain level is provoked at 8 /10 in intensity, constant, localized in the R hip, sharp in character w/o shooting pain. Pain is provoked by palpation, abduction and weight bearing. Pain is alleviated with chiropractic treatments x 1 in 2020 which provided minimal relief, physician guided home exercise regimen twice weekly x 4 wks, medications, topical, repositioning and rest. Pt is sitting veered to the L to alleviate pain. Interventional pain procedures completed include RONI L5-S1 x2 Patient is currently on Goltry, Neurontin Patient denies any side effects of the medication(s), denies excessive drowsiness or sleepiness, denies suicidal ideation and reports that the current pain medication is helping to control the pain and improve activities of daily living. Patient denies any motor or sensory deficits. Patient denies any fever or night sweats, denies any change in the bowel movements or urination. Physical Examination: -Constitutional: Cooperative. Not in acute distress . - Neurologic: Cranial nerve II to XII intact. No focal neurological deficits. - Psychatric: Alert & oriented x 3. Matching mood & appropriate affect. Judgment and insight intact. - Musculoskeletal: Cervical spine: Muscle bulk/ tone/ strength in the bilateral upper extremities normal Vertebral body tenderness to palpation over Spurling test positive Distraction test positive Facet loading test positive TTP Thoracic spine Muscle bulk / tone/ strength in the bilateral paraspinal muscles normal Vertebral body tender to palpation over Facet loading test positive TTP Lumbar spine: +R hip pain w abduction Motor bulk/ tone/ strength lower extremities , thigh and legs : 5/5 Deep tendon reflexes : Normal Knee Jerk. Normal Ankle Jerk . Vertebral body tenderness to palpation over Coles Test positive Lumbar Facet Loading Test positive Straight Leg Raise: positive at 30 degrees right side/ left side Gaenslen's Test positive Sacral spine : Severe tenderness over the Sacroiliac joint: right side / left side Range of motion: Flexion of the lumbar spine <60 degrees Range of motion: Extension of the lumbar spine <20 degrees Gaenslen's Test positive right side / left side Osvaldo test: positive right side / left side Thigh Thrust Test positive right side / left side Sacral Thrust Test positive right side / left side Assessment and plan: Chronic LBP secondary to lumbar DDD, spondylosis with facet arthropathy without myelopathy Recommendation of R intra articular hip injection. May need a series for optimal pain relief. Risks, benefits of procedure discussed and pt verbalized understanding. Admits to anticoagulant use or medical history of diabetes. Protocol for discontinuation/ continuation of medications adam procedure discussed. Minimal anesthesia provided, if clinically indicated, consisting of Versed and Fentanyl. All questions answered. I have spent less than 30 minutes on patient care today. Dr Scott was available by phone for the evaluation of this patient. The time was used to review the medical records including relevant urine studies and Prescription history (MAPs), review of the available imaging, evaluation and examination of the patient, coordination of care with the medical staff and if applicable referring physicians, as well as creation of the medical record PQRS Narrative: Smoking Status Current every day smoker Hx Alcohol Use (MH) Yes Home Medications: Ambulatory Orders Gabapentin [Neurontin] 300 mg PO TID 10/30/21 HYDROcodone/APAP 7.5-325MG [Goltry 7.5-325] 1 tab PO Q6HR PRN 01/24/22 HYDROcodone/APAP 10-325MG [Goltry 10-325] 1 tab PO Q4HR PRN 3 Days #18 tab 02/07/22 Ibuprofen [Motrin] 600 mg PO Q8HR PRN #30 tab 12/22/22 Controlled Substance Measures - Controlled Substance Measures Is patient prescribed a controlled substance at discharge?: No
== END ==
LOC: PNWHC3 08:49
PROVIDERS: ATTEND Specialist
DX: M25.551 Pain in right hip (principal); M51.36 Other intervertebral disc degeneration, lumbar region; M47.816 Spondylosis without myelopathy or radiculopathy, lumbar region; G89.29 Other chronic pain; F17.200 Nicotine dependence, unspecified, uncomplicated
CPT/HCPCS: 99211

== ENCOUNTER 2023-03-12 06:02 | Day surgery (SDC) | payer OTHER ==
[2023-03-11 08:18] VITALS: BMI 22.2
[2023-03-12] MEDS ORDERED: LACTATED RINGERS 1,000 ML IV SCH (06:21)
[2023-03-12 06:28] VITALS: RESP 18; TEMP 97.8
[2023-03-12] MEDS ORDERED: ROPIVACAINE 5 MG/ML 20 ML AMPULE ONE (07:03)
[2023-03-12] MEDS ORDERED: IOPAMIDOL M200 10 ML VIAL ONE (07:03)
[2023-03-12] MEDS ORDERED: methylPREDNISolone ACETATE 40 MG/ML 1 ML VIAL ONE (07:03)
--- NOTE | 2023-03-12 07:13 | P.PCN ---
Date of Procedure: 03/12/23 Procedure(s) Performed: Description of Procedure: PREOPERATIVE DIAGNOSIS: 1-Right hip osteoarthritis. 2-right hip arthralgia POSTOPERATIVE DIAGNOSIS: same as preop diagnosis PROCEDURES: Right intra-articular hip injection with fluoroscopy (fluoroscopy images available in the radiology Department ) ANESTHESIA: Local anesthesia with ropivacaine 0.5% 2 mL for skin and subcu infiltration EBL: Minimal PROCEDURE INDICATION: The patient with left hip pain secondary to osteoarthritis who has been unresponsive to conservative therapy. No use of blood thinners. PROCEDURE DESCRIPTION / TECHNIQUE: The patient was seen and identified in the preoperative area. Risks, benefits, complications, and alternatives were discussed with the patient (including but not limited to incomplete pain relief, bleeding, infection, nerve damage, and allergies to medications), the patient agreed to proceed with the procedure and signed the consent after all questions were answered. Patient was taken to the OR and time out was completed to verify proper patient, position, laterality of pain, and allergies. Pt was placed in the Supine position. . Vital signs remained stable throughout the procedure. . The Hip and the Groin area was prepped and draped in the usual sterile fashion. Vital signs were closely monitored during the procedure. . Using AP fluoroscopy, the femoral neck was identified, marked, and localized with Ropivacaine 0.5 % . Subsequently, a 22 gauge 3.5-inch spinal needle was advanced guided by fluoroscopy to the 10 o'clock position on the right femoral neck until the needle was felt entering the hip capsule. then Isoview 200 2 ml dye, was injected to demonstrate an arthrogram. After negative aspiration for CSF or heme and in the absence of paresthesias, the full 6 ml ml of the block solution containing Depo-Medrol 40 mg and 5 mL of preservative-free 0.5% Ropivacaine was injected. At the end of the procedure, the skin was cleansed and bandages were applied. COMPLICATIONS: No acute complications. DISPOSITION / PLANS: The patient was placed in a supine position and transferred to the recovery area in a stable condition for observation and was discharged from the recovery room after meeting discharge criteria. Home discharge instructions given to the patient by the staff..
--- NOTE | 2023-03-12 07:30 | FL ---
Intraoperative/procedural fluoroscopic services were provided. Total fluoroscopy time is 2 seconds wi th a total of 1 submitted images to PACS. Please see the operative/procedural note for further detail s. DAP: [id number]
[2023-03-12 07:35] VITALS: BP 121/78; PULSE 59
== END 2023-03-12 07:25 | disposition home or self-care (01) ==
LOC: ORPAIN 06:02
PROVIDERS: ATTEND Specialist
DX: M16.11 Unilateral primary osteoarthritis, right hip (principal)
CPT/HCPCS: 20610; J1030; Q9966; J2795